=== PATIENT | male | born 1970 | race Caucasian/White ===

== ENCOUNTER 2021-12-27 10:32 | Day surgery (SDC) | payer OTHER, BC ==
[~2021-12-27] VITALS: Ht 188 cm; Wt 121.4 kg
--- NOTE | 2021-12-27 11:03 | NUR ---
12/27/21 1102 Polly Gross 1 try right hand no flash 2 try right wrist no flash
== END 2021-12-27 13:15 | disposition home or self-care (01) ==
LOC: ORSCSDS 10:32
PROVIDERS: Student in an Organized Health Care Education/Training Program
PROC: 0DBL8ZX Excision of Transverse Colon, Via Natural or Artificial Opening Endoscopic, Diagnostic (ICD-10-PCS; principal; 2021-12-27 12:00)
PROC: 0DBK8ZX Excision of Ascending Colon, Via Natural or Artificial Opening Endoscopic, Diagnostic (ICD-10-PCS; principal; 2021-12-27 12:00)
PROC: 0DBP8ZX Excision of Rectum, Via Natural or Artificial Opening Endoscopic, Diagnostic (ICD-10-PCS; principal; 2021-12-27 12:00)
PROC: 0DBN8ZX Excision of Sigmoid Colon, Via Natural or Artificial Opening Endoscopic, Diagnostic (ICD-10-PCS; principal; 2021-12-27 12:00)
DX: Z12.11 Encounter for screening for malignant neoplasm of colon (principal); D12.2 Benign neoplasm of ascending colon; D12.3 Benign neoplasm of transverse colon; D12.5 Benign neoplasm of sigmoid colon; K62.1 Rectal polyp
CPT/HCPCS: 88305; J0461; J2250; J2405; J2704; J7120

== ENCOUNTER → 2025-06-13 | Outpatient (CLI) | payer OTHER ==
[2025-06-13 18:38] LABS: Source, Urine Clean Catch
[2025-06-13 19:24] LABS: Red Blood Cells, Urine 0-2 /hpf (0-2); White Blood Cells, Urine 0-2 /hpf (0-5)
[2025-06-17 10:24] LABS: LYME VLSE1/PEPC10 ABS, ELISA 0.20 IV (<=0.90)
== END | disposition home or self-care (01) ==
LOC: LAB SHORT 18:18 → LAB 18:18
PROVIDERS: Physician Assistant
DX: R50.9 Fever, unspecified (principal)
CPT/HCPCS: 81015; 86618; 87086

== ENCOUNTER → 2025-06-15 | Outpatient (CLI) | payer OTHER | LOC: LAB 17:46 → LAB SHORT 17:46 | DX: R61 Generalized hyperhidrosis (principal) | CPT/HCPCS: 87086 ==